=== PATIENT | female | born 1990 | race Caucasian/White ===

== ENCOUNTER 2018-01-29 12:59 | Day surgery (SDC) | payer OTHER, SELFPAY ==
[2018-01-21 10:12] VITALS: BMI 25.7
[2018-01-29] VITALS (10 sets, daily range): BP systolic 109–125; BP diastolic 63–91; PULSE 80–93; RESP 12–17; TEMP 36.2–36.6; O2SAT 99–100; BMI 25.7
--- NOTE | 2018-01-29 | DI.RAD.S_ITS ---
PROCEDURE: XR LUMBAR SPINE 2-3V INDICATIONS: L5- S1 DISCECTOMY TECHNIQUE: 1 views of the lumbar spine were acquired. COMPARISON: [facility], [place], XR LUMBAR SPINE WITH OLBIQUES PLUS FLEXION EXTENSION, 10/12/2017, 8:30. FINDINGS: Crosstable lateral lumbar spine demonstrates radiopaque surgical probe projected over the posterior elements at the L5-S1 level. IMPRESSION: Radiopaque probe projected over the posterior elements at the L5-S1 level. Dictated by: Gino Lamas [facility] Interpreted: Grace Castro MD on 01/29/2018 at 17:00 Approved by: Grace Castro M.D. on 01/30/2018 at 9:46
[2018-01-29] MEDS: LACTATED RINGERS 1,000 ML 100 ML IV (13:38)
--- NOTE | 2018-01-29 14:53 | PM.PREOP ---
Pre-operative Note Interval Note Pre-op Check: Yes History & Physical Reviewed by Physician and Yes Exam Performed Changes: No
--- NOTE | 2018-01-29 15:08 | PM.OP.1 ---
Operative Date/Time/Diagnoses Date of procedure: 01/29/18 Time of procedure: 16:42 Pre-op diagnosis: Lumbar disc herniation L5-S1 with radiculopathy Post-op diagnosis: same Procedure & Clinicians Procedure: Right-sided L5-S1 diskectomy Use of microscope Placement of epidural catheter Same procedure as scheduled: Yes Indications: [age] year old female with intractable pain from lumbar disc herniation. They had failed conservative management and requested operative intervention. Risks and benefits of surgery were discussed and appropriate consents were obtained. Surgeon: Flaco Alfonso International Marketing Manager: Alejandra Brunson Anesthesia Type: General Operative Notes Findings: None Closure Type: primary Specimen(s): none sent Estimated Blood Loss (mL): 10 Procedure in detail: Patient was brought to the operating room and intubated on the table. A time-out was performed. There were rolled over the well-padded prone position on the Pancho table. The back was prepped and draped in standard sterile fashion. Preoperative antibiotics were given. Using fluoroscopy, a 3 cm incision was made to the well-marked right of the midline. Bovie was used to split the fascia. We then sequentially dilated a muscle-splitting approach to the L5-S1 interspace. We placed our retractor and opened this up. The soft tissue was cleared off. We placed a marker and confirmed with fluoroscopy. We then brought in the microscope. A combination of high-speed bur and Kerrison were used to perform a right-sided hemilaminotomy and hemifacetectomy. We carefully retracted the dura and expose the disc. This was cleared with bipolar. A scalpel used to perform an annulotomy and a pituitary was used to perform the diskectomy. We used a pituitary to get to the large disc fragment in the middle and this came up as 1 large chunk. The ball probe was swept underneath the dura along the disc to make sure there were no further loose fragments. This was also placed into the disc and moved around to make sure there were no further loose fragments. Once everything was adequately decompressed, the wound was copiously irrigated. An epidural catheter was filled with 100 mcg of fentanyl and 8 mL of 0.25% Marcaine. The dura was carefully depressed under the laminotomy site and the catheter was advanced 6 cm cephalad. The retractor was removed and the fascia was closed. The epidural catheter was then injected without resistance and removed. Vancomycin powder was placed in the wound. Superficial and skin were closed. Sterile dressing was placed. The patient was then rolled over, transferred to the stretcher, and brought to recovery room without complications. Complications: none Condition: stable Disposition: PACU Plan for aftercare: Outpatient. Increase activity as tolerated and begin physical therapy in 2 weeks.
[2018-01-29] MEDS: CEFAZOLIN 2 GM/100 ML FROZ.PIGGY IV (15:35)
--- NOTE | 2018-01-29 15:57 | SUR.OPER ---
Prone on spine table, head in foam head support, padded chest and pelvic supports, gel pad at knees, lower legs supported by pillows; nipples, genitalia and toes free of pressure, arms secured on foam padded arm boards at <90 degrees abduction. Tape over blanket at thigh secured to table.
[2018-01-29] MEDS: LACTATED RINGERS 1,000 ML 42 ML IV (16:06)
[2018-01-29] MEDS: VANCOMYCIN 1,000 MG VIAL 1000 MG TOP (16:11)
[2018-01-29] MEDS: SODIUM CHLORIDE 0.9% 1,000 ML, GENTAMICIN 80 MG IRR (16:12)
[2018-01-29] MEDS: BUPIVACAINE 0.25% (PF) 8 ML, fentaNYL 100 MCG INJ (16:35)
[2018-01-29] MEDS: fentaNYL 100 MCG/2 ML INJ 25 MCG IV ×4 (17:08→17:25)
[2018-01-29] MEDS: HYDROMORPHONE 2 MG INJ 0.5 MG IV ×2 (17:15→17:27)
[2018-01-29] MEDS: OXYCODONE/ACETAMINOPHEN 5/325 TABLET 1 TAB PO ×2 (17:33→18:00)
== END 2018-01-29 18:25 | disposition home or self-care (01) ==
PROVIDERS: PCP General Practice; Visit Provider Orthopaedic Surgery
PROC: (CPT 63030; principal; 2018-01-29 15:15)
DX: M51.16 Intervertebral disc disorders with radiculopathy, lumbar region (principal); S39.012A Strain of muscle, fascia and tendon of lower back, initial encounter
CPT/HCPCS: 63030; 72100; 76000; J0690; J1100; J1170; J2250; J2405; J2704; J3010

== ENCOUNTER → 2019-10-05 16:37 | Outpatient (CLI) | payer OTHER, SELFPAY ==
[2019-10-05 18:16] LABS: Add Manual Diff / Slide Review NO; Basophils Absolute Auto 0 /uL (0-100); Basophils Percent Auto 0.8 % (0-2); Eosinophils Absolute Auto 500 /uL (0-450); Hematocrit 38.1 % (36-46); Hemoglobin 12.9 g/dL (12.0-16.0); Lymphocytes Absolute Auto 2100 /uL (1100-4500); Lymphocytes Percent Auto 35.3 % (25-40); Mean Corpuscular Volume 91.2 fL (80-100); Monocytes Absolute Auto 400 /uL (0-900); Neutrophils Absolute Auto 3000 /uL (1500-7000); Neutrophils Percent Auto 49.9 % (50-75); Platelet Count 239 X10^3/uL (150-400); Red Blood Cell Count 4.17 X10^6/uL (4.0-5.2); Red Cell Distribution Width 12.7 % (11.6-14.8)
== END ==
PROVIDERS: PCP General Practice; Referring Provider Orthopaedic Surgery; Visit Provider Orthopaedic Surgery
DX: Z01.812 Encounter for preprocedural laboratory examination (principal); S39.012D Strain of muscle, fascia and tendon of lower back, subsequent encounter; M51.16 Intervertebral disc disorders with radiculopathy, lumbar region
CPT/HCPCS: 36415; 85025

== ENCOUNTER → 2019-10-24 13:41 | Outpatient (CLI) | payer OTHER, SELFPAY ==
[2019-10-25 19:57] LABS: COVID19 Sendout Not Detected (Not Detect)
== END ==
PROVIDERS: PCP General Practice; Visit Provider Physician Assistant
DX: Z11.59 Encounter for screening for other viral diseases (principal)
CPT/HCPCS: 87635

== ENCOUNTER 2019-10-27 06:06 | Day surgery (SDC) | payer OTHER, SELFPAY ==
[2019-10-20 09:56] VITALS: BMI 26.3
[2019-10-27] VITALS (17 sets, daily range): BP systolic 87–125; BP diastolic 43–71; PULSE 67–83; RESP 8–18; TEMP 36.2–37.3; O2SAT 92–100; BMI 25.4
--- NOTE | 2019-10-27 | DI.RAD.S_ITS ---
PROCEDURE: XR LUMBAR SPINE 2-3V INDICATIONS: L5-S1 INSTRUMENTED FUSION W/ RIGHT SIDE DISCECTOMY/TLIF TECHNIQUE: AP and lateral operative views of the lumbar spine were acquired. COMPARISON: [facility], , XR LUMBAR SPINE 2-3V, 01/29/2018, 15:54. FINDINGS: AP and lateral C-arm images demonstrate posterolateral jalen and pedicle screw fixation and interbody disc prosthesis placement at L5-S1. There is no radiographic evidence of complications. IMPRESSION: Operative imaging utilized for fusion at L5-S1. Dictated by: Ashkan De Los Santos M.D. on 10/27/2019 at 9:54 Approved by: Ashkan De Los Santos M.D. on 10/27/2019 at 9:56
[2019-10-27] MEDS: LACTATED RINGERS 1,000 ML 42 ML IV (07:10)
--- NOTE | 2019-10-27 07:26 | PM.PREOP ---
Pre-operative Note COVID-19 COVID-19 status: Negative Result date/Date tested (Pos, Neg/Pending): 10/20/19 Interval Note History & Physical reviewed/Exam performed by Physician: Yes Changes to H&P: No
--- NOTE | 2019-10-27 07:32 | PM.OP.1 ---
Operative Date/Time/Diagnoses Date of procedure: 10/27/19 Time of procedure: 09:47 Pre-op diagnosis: Recurrent lumbar disc herniation with radiculopathy History of lumbar diskectomy Post-op diagnosis: same Procedure & Clinicians Procedure: Revision L5-S1 right-sided laminotomy and diskectomy L5-S1 TLIF (posterior/posterior interbody fusion) with cage L5-S1 screws Iliac crest bone graft aspirate Use of microscope Placement of epidural catheter Same procedure as scheduled: Yes Surgeon: Flaco Alfonso Social Insurance Specialist: Jazmine Moreno Anesthesia Type: General Operative Notes Closure Type: primary Specimen(s): none sent Prosthetic devices, grafts, tissues, transplants, or devices: NuVasive MAS Reline screws Globus Rise cage Applied: catheter Estimated Blood Loss (mL): 10 Blood products transfused: none Procedure in detail: The patient was brought to the operating room and intubated on the table. A time-out was performed. They were then rolled over to the well-padded Pancho table in the prone position. Preoperative antibiotics were given. The back was prepped and draped in the standard sterile fashion. Using fluoroscopy, a 4 cm longitudinal incision was made to the well-marked right of the midline. We used Bovie to come down to and split the lumbodorsal fascia. Using fluoroscopy and monitoring, we then percutaneously placed Jamshidi needles down the pedicles of L5 and S1 on the right side. These were changed out to guidewires and then we tapped and then placed the NuVasive MAS Reline screw shanks. We then opened up the retractors and used Bovie to clear up the posterolateral gutter as well as medially along the lamina to the spinous processes with care to protect her previous laminotomy site. A bur was used to decorticate the transverse processes. We brought in the microscope. Using a combination of bur and Kerrison rongeurs, a revision right-sided laminotomy was performed from the right side. We had to carefully isolate the junction of the scar and the previous laminotomy. A curette was used to separate the two. We then performed further resection with a revision laminotomy and facetectomy. We carefully retracted the dura medially. This was adherent was scar tissue but we freed it up and expose the disc herniation. Bipolar was used for hemostasis and then an annulotomy was performed. We performed a diskectomy. Please of this was separate and distinct from the TLIF approach as we were dealing with a revision surgery with scar tissue which added to the time and complexity. We then began the TLIF prep. The remainder of the facetectomy was performed on this side at L5-S1. We carefully cleaned up the remainder of the foramen until we could easily retract the exiting root as well as being able retracted the dura and traversing root medially. We performed a complete diskectomy using a combination of paddles, jacqueline, pituitaries, and curettes. We distracted the disc using a paddle and locked the retractor in an open position. We then filled the disc space with Osteocel bone graft. We then placed the globus Rise cage under fluoroscopy and then filled this in with more bone graft. The distraction on the retractor was released to compress down. This completed the posterior interbody fusion portion of the TLIF at L5-S1. An epidural catheter was then prepped with 4 mL of 0.5% Marcaine, 1 mg Stadol, 4 mg Duramorph, and 100 mcg of fentanyl and placed in the spinal canal by carefully depressing the dura and advancing it 6 cm cephalad under the remaining lamina without resistance. We then placed the screw heads, jalen, and locked down the set screws. The wound was copiously irrigated. A small stab incision was made over the PSIS. We used a Jamshidi needle to aspirate several mL of bone marrow from the pelvis. This was mixed with the remaining Osteocel and combined with all of the locally harvested bone graft and placed in the posterolateral gutter for the posterior fusion of the TLIF at L5-S1. The muscle fascia was closed. The epidural catheter was then injected without resistance and the catheter was pulled. We then went to the opposite side. Again using fluoroscopy, a 3 cm incision was made and Bovie was used to come down to split the fascia. Using neural monitoring and fluoroscopy, Jamshidi needles were advanced down the pedicles of L5 and S1 on the left side. These were switched over guidewires, tapped, and screws placed. We then placed a jalen and locked the set screws on this side. The wound was irrigated. The fascia was closed. Vancomycin powder was placed in the wounds. The superficial and skin were closed. A sterile dressing was placed. The patient was then rolled over extubated and brought to recovery room without complications. Complications: none Post-operative Condition: stable Disposition: PACU Plan for aftercare: Plan for admission for the next 1-2 days. Up with therapy.
[2019-10-27] MEDS: CEFAZOLIN 2 GM/100 ML FROZ.PIGGY IV ×3 (07:41→23:34)
[2019-10-27] MEDS: SODIUM CHLORIDE 0.9% 1,000 ML, GENTAMICIN 80 MG IRR ×2 (08:21→08:24)
[2019-10-27] MEDS: THROMBIN (RECOMBINANT) 5,000 UNIT VIAL 5000 UNIT TOP (08:22)
[2019-10-27] MEDS: VANCOMYCIN 1,000 MG VIAL 1000 MG TOP (08:22)
[2019-10-27] MEDS: BUPIVACAINE 0.5% (PF) 4 ML, MORPHINE-PF 4 MG, BUTORPHANOL 1 MG, fentaNYL 100 MCG INJ (08:22)
[2019-10-27] MEDS: OXYCODONE IR 5 MG TABLET PO (10:42)
[2019-10-27] MEDS: LACTATED RINGERS 1,000 ML 125 ML IV ×2 (11:47→20:11)
[2019-10-27] MEDS: CELECOXIB 200 MG CAPSULE 400 MG PO (11:49)
--- NOTE | 2019-10-27 12:00 | PC.NURSE ---
Pt to room 218 via bed at 1100. Pt awake alert and oriented x 3. Denies pain or nausea. Pt was given water to drink, positioned on her left side with pillows for support and ice pack to back. Pt oriented to room, call light, bed controls and tv controls. SCD's on and running. Bed alarm on for safety. Reminded Pt to follow back precautions-no bending, lifting or twisting and log roll in and out of bed. Pt agrees to call for assistance as needed and to not try to get up without assistance. IV infusing as ordered.
--- NOTE | 2019-10-27 13:28 | CM.DANOTE ---
DCP: Case received, EMR reviewed. Patient just came out of surgery. Wrote the name of this heel caser on patient's board in her room. Was able to obtain information regarding patient's history from recent notes in her chart. DCP assessment completed with information currently available. Patient is a 29 year old female who admitted early this morning to the care of the orthopedic team. PCP: Dr. Montes. Payer: confirmed: Silvia Clarke. Patient came to the hospital for a surgical procedure. She had a L5-S1 laminotomy and diskectomy. Patient has had history of chronic back pain, which was exacerbated while jogging. 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 She is independent at baseline. 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 She resides in [place] with her spouse, Dallin. P: DCP to continue to follow. She will be working with P.T[employer] when she is stable. Patient should be able to go home when she is medically stable and works with [employer]. Catherine Moore RN/Pel[employer] Skinner
--- NOTE | 2019-10-27 13:59 | PT.IIE ---
Current Diagnoses Intervertebral disc disorders with radiculopathy, lumbar region (10/27/19) Strain of muscle, fascia and tendon of lower back, subsequent encounter (10/27/19) Surgery Performed Operation Date: 10/27/19 07:45 Actual Procedures p L5-S1 revision right discectomy & instrumented fusion (TLIF) w/bone graft - Flaco Alfonso MD Surgical History (Last Updated 10/20/19 @ 10:08 by Akila Mart RN) Hx of laminectomy (Acute 01/29/18) S/P LEEP (loop electrosurgical excision procedure) (Acute 2019) Medical History (Last Updated 10/20/19 @ 10:08 by Akila Mart RN) Back pain (Acute) Depression (Acute) Insomnia (Acute) Migraine headache (Acute) Physical Therapy Inpatient Evaluation/Re-Eval M1 PT/OT-IP Prior Functional Status Start: 10/27/19 14:57 Freq: NEEDED Status: Active Protocol: Document 10/27/19 13:59 AB (Rec: [facility]/27/19 15:[facility] Medical Review Prior Functional Status Medical History Reviewed Yes Communication able to make needs known Mobility and Gait pt stated that she is independent with all mobilities and ambulation without AD Social History Household Members spouse Living Arrangements House Number of Floors (Floors) One Floor Number of Stairs To Enter/Railing? 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 Additional Social History Comment pt works in the [employer] pt has a standard walker M2 PT-IP Current Condition Start: 10/27/19 14:57 Freq: NEEDED Status: Active Protocol: Document 10/27/19 13:59 AB (Rec: 10/27/19 15:11 AB [email or web address]) Physical Therapy Current Condition Current Condition Evaluation Date 10/27/19 Treatment Diagnosis s/p L5S1 TLIF;laminotomy/ discectomy; difficulty in walking Onset Date 10/27/19 Precautions Lumbar Precautions Log Roll,No Twisting,Limit Bending,Lifting Restriction of 10 lbs,Gait Belt above Incisional Area M3 PT-IP Subjective Start: 10/27/19 14:57 Freq: NEEDED Status: Active Protocol: Document 10/27/19 13:59 AB (Rec: 10/27/19 15:11 [id number]) Subjective Physical Therapy Visit Type Type Initial Evaluation Visit Start Time 13:59 Visit Stop Time 14:40 Total Visit Minutes 41 Number of WEATHERIZATION CREW LEADER Visits 0 Physical Therapy Visit Comments Patient Comments pt is agreeable to do PT Therapy Pain Assessment Pain When Pain Assessed At Rest Pain Present Pain Present Pain Reported Location Lower Back Intensity 5 Scale Used increases to 6-7/10 with mobility Pain Management Techniques Modification of Treatment,Re- positioning,Timing of Activity with Medications M4 PT-IP Mobility and Gait Start: 10/27/19 14:57 Freq: NEEDED Status: Active Protocol: Document 10/27/19 13:59 AB (Rec: 10/27/19 15:11 [id number]) PT-Bed Mobility Assessment Rolling Type of Rolling Log Rolling Level of Assist Standby Assistance Supine to Sit Supine to Sit Standby Assistance PT-Transfer Assessment Sit to and From Stand Sit to and from Stand Standby Assistance Equipment Transfer Assistive Device Gait Belt,Front Wheeled Walker Orthotic/Prosthetic Devices or Brace: No Transfers Transfer Destination Chair Transfer Technique ambulated using FWW Transfer Ability Level of Assist Standby Assistance,Contact Guard Assistance,1 Person Assistance,Use of Upper Extremities Comments Mobility Comments reviewed back precautions and log roll with pt. pt completed supine to sit log roll SBA. able to sit on EOB SBA. spouse in room with pt. pt completed sit to stand SBA and ambulated in room using FWW SBA ~ 15 ft. pt sat on chair. pt completed up/down step stool. spouse was able to assist pt safely. positioned pt on chair. call light and table placed witin reach. Gait Assessment Gait Gait Assistance Required: Standby Assistance,Contact Guard Assist Distance (Feet) 15 Able to Maintain Weight Bearing Status Yes During Gait Assistive Devices Assistive Device Gait Belt,Front Wheeled Walker Orthotic/Prosthetic Devices or Brace: No Factors Limiting Gait Function Factors Limiting Gait Function Decreased Activity Tolerance, Limited Range of Motion,Pain Stair Climbing Assessment Evaluation Level of Assist On Stairs Minimal Assistance,1 Person Assistance Technique/Endurance Stair Climbing Direction Ascend and Descend Stair Climbing Technique Step to Step Number of Steps Climbed 1 Query Text: Stair Climbing Set # Repetitions (reps) 2 Comments Stair Climbing Comments pt completed up/down step stool requiring min A CONDUCTOR FREIGHT with PT assisting pt on first set. Spouse assisted pt on 2nd set and was able to safely assist pt. PT-Balance Assessment Sitting Balance and Reactions Static Sitting Balance Ability Good Dynamic Sitting Balance Ability Good Standing Balance and Reactions Static Standing Balance Ability Fair Dynamic Standing Balance Ability Fair Device Used FWW M5 PT-IP Objective Assessments Start: 10/27/19 14:57 Freq: NEEDED Status: Active Protocol: Document 10/27/19 13:59 AB (Rec: 10/27/19 15:11 AB [email or web address]) Orientation Orientation/Cognition Level of Alertness Alert Orientation Name,Age,Birthday,Month,Date, Year,Day of Week,Place, Situation Language Function Ability No Deficits Noted Safety Awareness Understands Safety Issues Memory Description No Deficits Noted Gross Range of Motion Lower Extremity ROM Assessment Within Functional Limits Strength Lower Extremity Strength Assessment Right Impaired Hip 4-/5 Knee 4-/5 Coordination Assessment Gross Coordination Gross Coordination WNL Sensation Assessment Sensation Gross Sensation WNL Muscle Tone Muscle Tone WNL Yes M6 PT-IP Treatment Start: 10/27/19 14:57 Freq: NEEDED Status: Active Protocol: Document 10/27/19 13:59 AB (Rec: 10/27/19 15:11 AB [email or web address]) Physical Therapy Treatment Education Education Provided Precautions,Weight Bearing Status,Post-Op Packet,Safety M7 PT-IP Assessment and Plan Start: 10/27/19 14:57 Freq: NEEDED Status: Active Protocol: Document 10/27/19 13:59 AB (Rec: 10/27/19 15:11 AB [email or web address]) PT Summary Assessment and Plan Potential Rehabilitation Potential Good Status of Condition at Evaluation Stable Summary Impairments Pain,ROM,Strength,Balance,Bed Mobility,Transfers,Gait, Activity Tolerance Assessment Summary pt requiring SBA to CGA with mobility. initiated caregiver training with stair climbing and spouse was able to assist pt safely. pt plans to go home and spouse will be able to assist pt at home. Goals Bed Mobility Goal Independent Transfer Goal Independent,Front Wheeled Walker Gait Goal Independent,Front Wheel Walker Gait Distance 200 Other Goals improve ambulation using standard walker mod I 250 ft up/down 3 steps CONDUCTOR FREIGHT CGA Days to Meet Goals 3 Frequency of Treatment Frequency Of Treatment Twice a Day Treatment Plan Physical Therapy Treatment Plan Bed Mobility Training,Transfer Training,Gait Training, Therapeutic Exercise,Balance Retraining,Post Op Education, Discharge Planning,Hot or Cold Pack,Neuromuscular Re-ed, Coordination Retraining,Manual Therapy Recommendations To Nursing Amount of Assist Needed 1 Person Assist Discharge Recommendations PT Discharge Recommendations Home with Assistance Transportation Needs at Discharge Private Vehicle
[2019-10-27] MEDS: OXYCODONE/ACETAMINOPHEN 5/325 TABLET 1 TAB PO ×2 (14:03→18:09)
[2019-10-27] MEDS: hydrOXYzine pamoate 25 MG CAPSULE PO ×2 (14:55→20:12)
--- NOTE | 2019-10-27 14:55 | OT.IP.EVAL ---
Current Diagnoses Intervertebral disc disorders with radiculopathy, lumbar region (10/27/19) Strain of muscle, fascia and tendon of lower back, subsequent encounter (10/27/19) Surgery Performed Operation Date: 10/27/19 07:45 Actual Procedures p L5-S1 revision right discectomy & instrumented fusion (TLIF) w/bone graft - Flaco Alfonso MD Past Medical History (Last Updated 10/20/19 @ 10:08 by Akila Mart RN) Back pain (Acute) Depression (Acute) Insomnia (Acute) Migraine headache (Acute) Surgical History (Last Updated 10/20/19 @ 10:08 by Akila Mart RN) Hx of laminectomy (Acute 01/29/18) S/P LEEP (loop electrosurgical excision procedure) (Acute 2018) Occupational Therapy Inpatient Evaluation/Re-Eval M1 PT/OT-IP Prior Functional Status Start: 10/27/19 15:39 Freq: NEEDED Status: Active Protocol: Document 10/27/19 14:55 [facility] (Rec: 10/27/19 15:58 [facility] [id number]) Medical Review Prior Functional Status Medical History Reviewed Yes Communication able to make needs known Mobility and Gait pt stated that she is independent with all mobilities and ambulation without AD Activities of Daily Living and IADL's Completely independent with needs but just needing to take more time to complete due to her increased back pain. In addition pt states has not been able to do much lifting at work or at home. Social History Household Members spouse Living Arrangements House Number of Floors (Floors) One Floor Number of Stairs To Enter/Railing? 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 Additional Social History Comment pt works in the [employer] pt has a standard walker M2 OT-IP Current Condition Start: 10/27/19 15:39 Freq: Status: Active Protocol: Document 10/27/19 14:55 [facility] (Rec: 10/27/19 15:58 [facility] [id number]) Occupational Therapy Current Condition Current Condition Evaluation Date 10/27/19 Treatment Diagnosis Recurrent disc herniation, s/p right discectomy & intru fusion TLIF L5-S1 Diagnosis Onset Date 10/27/19 Post Operative Precautions Lumbar Precautions Log Roll,No Twisting,Limit Bending,Lifting Restriction of 10 lbs,Gait Belt above Incisional Area M3 OT- IP Subjective and Pain Start: 10/27/19 15:39 Freq: Status: Active Protocol: Document 10/27/19 14:55 [facility] (Rec: 10/27/19 15:58 [facility] [id number]) OT- Subjective Occupational Therapy Visit Type Type Initial Evaluation Visit Start Time 14:55 Visit Stop Time 15:23 Total Visit Minutes 28 Occupational Therapy Visit Comments Patient Comments Pt agreed to get up for OT eval. Pt's present in the room. Patient/Caregiver Goals To go home. OT Pain Assessment Pain When Pain Assessed At Rest Pain Present Pain Present Denied Pain M4 OT- IP ADL's Start: 10/27/19 15:39 Freq: Status: Active Protocol: Document 10/27/19 14:55 [facility] (Rec: 10/27/19 15:58 [facility] [id number]) OT [id number] Comments OT Self-Feeding Comments NOt at meal time. OT ADL-Grooming General Evaluation Grooming Ability Standby Assistance Comments OT Grooming Comments Set-up , educated to hinge at hips to spit into the sink in order to best follow back precautions or just spit into a cup. OT ADL-Oral Care General Eval Oral Care Ability Independent OT ADL-Dressing General Eval Lower Body Dressing Ability Standby Assistance,Maximum Assistance Comments OT Dressing Comments Able to issue and educate use of LB dressing equipment to help increase ease and independence as pt's at times works 12 hours shift and not home. Pt able to demonstrate good safety and understanding. OT ADL-Toileting Comments OT Toileting Comments Pt not having to go, but able to simulate leaning to the left appropriately to be able to wipe with good safety and follow through of back precautions. OT ADL-Bathing Comments OT Bathing Comments Pt states has a shower stool and HHSP and to help. M5 OT- IP IADL's Start: 10/27/19 15:39 Freq: Status: Active Protocol: Document 10/27/19 14:55 [facility] (Rec: 10/27/19 15:58 [facility] [email or web address]) OT-Instrumental Activities of Daily Living Home Safety Awareness Awareness of Need for Assistance at Home Good Awareness Ability to Problem Solve Emergency Able to Problem Solve Situations Medication Management Medication Management No Deficits Identified Money Management Money Management No Deficits Identified Meal Preparation Meal Preparation Caregiver Provides Assist Food Products Tester Food Products Tester Caregiver Provides Assist M6 OT- IP Functional Cognition Start: 10/27/19 15:39 Freq: Status: Active Protocol: Document 10/27/19 14:55 [facility] (Rec: 10/27/19 15:58 [facility] [email or web address]) Cognitive Factors Limiting Selfcare Function Cognitive Ability Level of Alertness Alert Patient Orientation Name,Place,Situation Attention Span Ability Capable of Focused Attention, Capable of Sustained Attention Ability to Follow Commands Able to Follow Multi-Step Commands Memory Description No Deficits Noted Safety Awareness No Deficits Noted Cognitive Comments Cognitive Assessment Comments At this time just notes a bit groggy from pain medications and states good understanding to have supervise or assist with meds and money management needs if needed. OT- Vision and Hearing OT- Hearing Assessment OT- Hearing Assessment WFL OT- Vision Assessment Visual Acuity WFL M7 OT- IP Mobility and Balance Start: 10/27/19 15:39 Freq: Status: Active Protocol: Document 10/27/19 14:55 [facility] (Rec: 10/27/19 15:58 [facility] [email or web address]) OT-Transfer Assessment Sit to and From Stand Sit to and from Stand Standby Assistance Transfers Transfer Ability Standby Assistance Technique Transfer Destination Car Transfer Technique Stand Step Pivot Devices Transfer Assistive Devices Gait Belt,Front Wheeled Walker Comments Mobility Comments SBA with FWW on level surfaces . OT- Balance Assessment Sitting Balance and Reactions Static Sitting Balance Ability Normal Dynamic Sitting Balance Ability Good Standing Balance and Reactions Static Standing Balance Ability Good M8 OT- IP Objective Assessments Start: 10/27/19 15:39 Freq: Status: Active Protocol: Document 10/27/19 14:55 [facility] (Rec: 10/27/19 15:58 [facility] [email or web address]) OT Gross Range of Motion Upper Extremity Range of Motion Assessment Within Functional Limits OT Strength Upper Extremity Strength Assessment Within Functional Limits OT-Muscle Tone Assessment Muscle Tone WNL Yes M9 OT- IP Assessment and Plan Start: 10/27/19 15:39 Freq: Status: Active Protocol: Document 10/27/19 14:55 [facility] (Rec: 10/27/19 15:58 [facility] [email or web address]) OT Summary Assessment and Plan Potential Rehabilitation Potential Excellent Analytic Complexity at Evaluation Low Summary OT Impairments Functional Mobility,Dressing, Toileting,Bathing,Toilet Transfers,Shower Transfers Progress Towards Goals Progressing Toward Goals Assessment Summary Pt low complexity main barrier are steps and now needing use of adaptive equipment to assist for LB dressing needs. Pt has a supportive that can assist pt at home. Pt to go home when medically stable. Goals Grooming Goal Independent Dressing Goal Independent Toileting Goal Independent Bathing Goal Independent Toilet Transfer Goal Independent Shower Transfer Goal Independent Patient/Caregiver Education Goal Caregiver Independent Assisting Patient Days to Meet Goals 3 Frequency of Treatment Frequency Of Treatment Once a Day Treatment Plan OT Treatment Plan ADL Training,Functional Mobility,Patient/Family Education,Discharge Planning Other Treatment Recommendations and Next Shower Treatment Focus Discharge Recommendations OT Discharge Recommendations Home with Assistance Transportation Needs at Discharge Private Vehicle
[2019-10-27] MEDS: OXYCODONE/ACETAMINOPHEN 5/325 TABLET 2 TAB PO ×2 (19:26→23:34)
[2019-10-27] MEDS: GABAPENTIN 300 MG CAPSULE PO (20:11)
[2019-10-27] MEDS: SENNOSIDES 8.6 MG TABLET 17.2 MG PO (20:11)
[2019-10-27] MEDS: DOCUSATE 100 MG CAPSULE PO (20:11)
[2019-10-27] MEDS: CELECOXIB 200 MG CAPSULE PO (20:12)
[2019-10-27] MEDS: TOPIRAMATE 25 MG TABLET 50 MG PO (20:12)
[2019-10-27] MEDS: ZOLPIDEM 5 MG TABLET PO (22:59)
[2019-10-28 04:41] VITALS: BP 115/62; PULSE 82; RESP 18; TEMP 36.8; O2SAT 100
[2019-10-28] MEDS: OXYCODONE/ACETAMINOPHEN 5/325 TABLET 2 TAB PO ×2 (04:43→08:15)
[2019-10-28 05:37] LABS: Hematocrit 35.8 % (36-46); Hemoglobin 11.9 g/dL (12.0-16.0)
--- NOTE | 2019-10-28 07:18 | PM.PNPO.1 ---
Subjective Subjective Date Patient Seen: 10/28/19 Time Patient Seen: 07:18 Interval history: She is doing very well. She has been out of bed and ambulating well. Pain is about 4-5. Legs feel great Exam Vital Signs (past 8 hours): - 10/27/19 23:20 10/28/19 04:41 Temperature 99.2 F 98.3 F Pulse Rate 75 82 Respiratory Rate 18 18 Blood Pressure 116/59 L 115/62 Pulse Oximetry 100 100 Oxygen Delivery Method Room Air Oxygen Flow Rate 0 Const Orientation: alert and oriented x3 Back/Spine/Pelvis Other: Minimal dry drainage. 5/5 motor both lower extremities. Objective Labs Result Diagrams: 10/28/19 05:10 Labs: Laboratory Results - last 24 hr 10/28/19 05:10 Hgb 11.9 L Hct 35.8 L Assessment & Plan Post-op Postoperative Procedures: Procedures Operation Date: 10/27/19 07:45 Actual Procedures Side Surgeon p L5-S1 revision right discectomy & instrumented fusion (TLIF) w/bone graft Flaco Aflonso MD She is doing great. She feels she is ready to go home. Plan for discharge. Quality VTE Deep Vein Thrombosis/Pulmonary Embolism Present on Admission: No
[2019-10-28 08:00] VITALS: BP 112/66; PULSE 78; RESP 16; TEMP 37.1; O2SAT 100
[2019-10-28] MEDS: CELECOXIB 200 MG CAPSULE PO (08:15)
[2019-10-28] MEDS: TOPIRAMATE 25 MG TABLET 50 MG PO (08:15)
[2019-10-28] MEDS: DOCUSATE 100 MG CAPSULE PO (08:15)
--- NOTE | 2019-10-28 09:10 | PT.IPTN ---
Current Diagnoses Intervertebral disc disorders with radiculopathy, lumbar region (10/27/19) Strain of muscle, fascia and tendon of lower back, subsequent encounter (10/27/19) Surgery Performed Operation Date: 10/27/19 07:45 Actual Procedures p L5-S1 revision right discectomy & instrumented fusion (TLIF) w/bone graft - Flaco Alfonso MD Physical Therapy Treatment Note M2 PT-IP Current Condition Start: 10/27/19 14:57 Freq: NEEDED Status: Active Protocol: Document 10/27/19 13:59 [facility] (Rec: 10/27/19 15:11 AB [id number]) Physical Therapy Current Condition Current Condition Evaluation Date 10/27/19 Treatment Diagnosis s/p L5S1 TLIF;laminotomy/ discectomy; difficulty in walking Onset Date 10/27/19 Precautions Lumbar Precautions Log Roll,No Twisting,Limit Bending,Lifting Restriction of 10 lbs,Gait Belt above Incisional Area M3 PT-IP Subjective Start: 10/27/19 14:57 Freq: NEEDED Status: Active Protocol: Document 10/28/19 09:10 [facility] (Rec: 10/28/19 10:50 AB [email or web address]) Subjective Physical Therapy Visit Type Type Treatment Note Visit Start Time 09:10 Visit Stop Time 09:25 Total Visit Minutes 15 Number of INSTRUMENTATION MANAGER Visits 0 Physical Therapy Visit Comments Patient Comments agreeable to do PT Therapy Pain Assessment Pain When Pain Assessed At Rest Pain Present Pain Present Pain Reported Location Lower Back Intensity 6 Scale Used Numeric (0 - 10) Pain Management Techniques Re-positioning,Timing of Activity with Medications M4 PT-IP Mobility and Gait Start: 10/27/19 14:57 Freq: NEEDED Status: Active Protocol: Document 10/28/19 09:10 [facility] (Rec: 10/28/19 10:50 AB [email or web address]) PT-Bed Mobility Assessment Rolling Type of Rolling Log Rolling Level of Assist Standby Assistance Supine to Sit Supine to Sit Standby Assistance PT-Transfer Assessment Sit to and From Stand Sit to and from Stand Standby Assistance Equipment Transfer Assistive Device Gait Belt,Front Wheeled Walker Orthotic/Prosthetic Devices or Brace: No Gait Assessment Gait Gait Assistance Required: Standby Assistance Distance (Feet) 300 Able to Maintain Weight Bearing Status Yes During Gait Assistive Devices Assistive Device Gait Belt,Front Wheeled Walker Factors Limiting Gait Function Factors Limiting Gait Function Decreased Activity Tolerance, Decreased Strength,Limited Range of Motion,Pain,Poor Balance Comments Gait Comments pt completed supine to sit log roll SBA. completed sit to stand SBA. simulated cook pickled meat walker and pt was able to ambulate in room SBA. ambulated farther in hallway using FWW SBA with 2 standing rest breaks. ambulated more in room without AD SBA ~ 30 ft. Stair Climbing Assessment Comments Stair Climbing Comments pt stated that she feels confindent with doing steps from yesterday's and does not want to do stairs today M5 PT-IP Objective Assessments Start: 10/27/19 14:57 Freq: NEEDED Status: Active Protocol: Document 10/27/19 13:59 [facility] (Rec: 10/27/19 15:11 AB [email or web address]) Orientation Orientation/Cognition Level of Alertness Alert Orientation Name,Age,Birthday,Month,Date, Year,Day of Week,Place, Situation Language Function Ability No Deficits Noted Safety Awareness Understands Safety Issues Memory Description No Deficits Noted Gross Range of Motion Lower Extremity ROM Assessment Within Functional Limits Strength Lower Extremity Strength Assessment Right Impaired Hip 4-/5 Knee 4-/5 Coordination Assessment Gross Coordination Gross Coordination WNL Sensation Assessment Sensation Gross Sensation WNL Muscle Tone Muscle Tone WNL Yes M6 PT-IP Treatment Start: 10/27/19 14:57 Freq: NEEDED Status: Active Protocol: Document 10/28/19 09:10 [facility] ([facility] 10/28/19 10:[facility] Therapy Treatment Education Education Provided Precautions,Safety M7 PT-IP Assessment and Plan Start: 10/27/19 14:57 Freq: NEEDED Status: Active Protocol: Document 10/28/19 09:10 [facility] (Rec: 10/28/19 10:50 [facility] PT Summary Assessment and Plan Potential Rehabilitation Potential Good Summary Impairments Pain,ROM,Strength,Balance,Bed Mobility,Transfers,Gait, Activity Tolerance Progress Towards Goals Progressing Toward Goals,Safe For Discharge Assessment Summary pt is progressing well with mobility and plans to go home today with spouse to assist her. 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
--- NOTE | 2019-10-28 10:36 | OT.IPNOTE ---
Pt has no further questions for OT needs and going home. No charge.
--- NOTE | 2019-10-28 10:48 | PC.NURSE ---
Patient has worked with physical therapy and is being discharged from the hospital at 1100 am. Dressing to be changed to an water proof dressing before patient leaves. She denies shooting pains or numbness to extremities. Given 2 percocet for pain and helpful. in room and helpful with care.
--- NOTE | 2019-10-28 11:29 | CM.DPC ---
DCP: continued: case received, EMR reviewed and discussed in Team Rounds. Pt has been cleared for home setting by PT and OT. Her has been in room. A d/c order was placed and pt and her left for home setting this morning.
== END 2019-10-28 11:15 | disposition home or self-care (01) ==
LOC: OR 06:08 → AC 06:22
PROVIDERS: PCP General Practice; Referring Provider General Practice; Visit Provider Orthopaedic Surgery
PROC: (CPT 22633; principal; 2019-10-27 07:45)
DX: M51.16 Intervertebral disc disorders with radiculopathy, lumbar region (principal); S39.012D Strain of muscle, fascia and tendon of lower back, subsequent encounter; F17.210 Nicotine dependence, cigarettes, uncomplicated
CPT/HCPCS: 22633; 22853; 20939; 22840; 63042; 36415; 72100; 76000; 85014; 85018; 97116; 97161; 97165; 97535; 99406; C1776; J0330; J0595; J0690; J1100; J2274; J2405; J2704; J3010